=== PATIENT | male | born 1935 ===

== ENCOUNTER → 2022-04-11 08:48 | Outpatient (CLI) | payer OTHER, SELFPAY ==
--- NOTE | ~2022-04-11 | CT_ITS ---
EXAMINATION: CT lumbar spine wo con DATE: 04/11/2022 09:14 INDICATION: Weakness and back pain TECHNIQUE: Computed tomography (CT) of the lumbar spine was performed without intravenous contrast. A utomated exposure control and iterative reconstruction technique were employed. The dose-length produ ct was 938.72 mGy-cm. COMPARISON: None FINDINGS: 2-3 mm retrolisthesis L5 on S1. Vertebral body heights are normal. No fracture. Mild disc height loss at L3-L4. Anterior bridging osteophytes at T11-T12 and T12-L1. Additional prominent anterior endplat e osteophytes in the mid and lower lumbar spine suggestive of There are bridging osteophytes at multi ple levels in the spine, consistent with diffuse idiopathic skeletal hyperostosis (DISH). Paravertebr al soft tissues are unremarkable. The following disc levels are specifically discussed: T12-L1: The disc does not extend beyond the endplate margin. There is mild left and moderate right fa cet joint osteoarthritis. There is no neural foraminal stenosis. There is no central canal stenosis. L1-L2: Disc is mildly bulging. There is moderate left and mild to moderate right facet joint osteoart hritis. There is mild bilateral neural foraminal stenosis. There is mild central canal stenosis. L2-L3: Disc is mildly bulging. There is moderate bilateral facet joint osteoarthritis. There is mild bilateral neural foraminal stenosis. There is mild central canal stenosis. L3-L4: Disc is bulging. There is hypertrophy of the ligamentum flavum. There is moderate left and se chandler right facet joint osteoarthritis. There is moderate bilateral neural foraminal stenosis. There i s moderate to severe central canal stenosis. L4-L5: Disc is bulging. There is right and severe left facet joint osteoarthritis. There is mild to m oderate bilateral neural foraminal stenosis. There is moderate central canal stenosis. L5-S1: Disc is bulging. There is mild left and moderate right facet joint osteoarthritis. There is mo derate bilateral neural foraminal stenosis. There is mild central canal stenosis. IMPRESSION: 1. 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 Reviewed, dictated and finalized at location A. IMPRESSION: 1. Lumbar spondylosis with mild degenerative disc disease and moderate to sever e facet osteoarthritis most notable for moderate to severe central canal stenos is at L3-L4.
== END ==
PROVIDERS: PCP Family Medicine; Visit Provider Family Medicine
DX: M47.815 Spondylosis without myelopathy or radiculopathy, thoracolumbar region (principal); M48.05 Spinal stenosis, thoracolumbar region; M47.817 Spondylosis without myelopathy or radiculopathy, lumbosacral region; M48.07 Spinal stenosis, lumbosacral region
CPT/HCPCS: 72131